=== PATIENT | male | born 1985 | race Caucasian/White ===

== ENCOUNTER 2017-03-25 18:26 | Observation (INO) | payer BC ==
[~2017-03-25] VITALS: Ht 182.9 cm; Wt 81.6 kg
[2017-03-25 19:03] LABS: HEMATOCRIT 46.2 % (38.0-50.0); MCH 30.5 PG (29.0-34.0); MCHC 35.1 G/DL (30.0-36.0); MCV 86.8 FL (86-99); MEAN PLAT.VOLUME 9.3 uM^3 (9.0-12.4); PLATELET COUNT 156 K/uL (156-360); RBC DIS.WIDTH-CV 12.2 % (11.8-14.6); RBC DIS.WIDTH-SD 38.8 % (39-53); RED BLOOD COUNT 5.32 M/uL (4.00-5.50); WHITE BLOOD COUNT 7.5 K/uL (4.1-10.2)
[2017-03-25 19:13] LABS: CHLORIDE 103 mEq/L (99-109); POTASSIUM 3.7 mEq/L (3.7-5.4); SODIUM 139 mEq/L (136-147)
[2017-03-25 19:15] LABS: GLUCOSE 115 mg/dL (70-99)
[2017-03-25 19:16] LABS: ANION GAP 10 MEQ/L (2-14)
[2017-03-25 19:20] LABS: UREA NITROGEN (BUN) 14 mg/dL (9-23)
[2017-03-25 19:22] LABS: GFR ESTIMATE (CALCULATED) > 59 mL/min/
[2017-03-25 19:23] LABS: TROP-I INTERPRETATION NEGATIVE; TROPONIN-I < 0.01 ng/mL (0.0-0.30)
[2017-03-25 21:47] LABS: BASE EXCESS 3.9 mEq/L (-3 to +3); BICARBONATE 27.7 mEq/L (22-26); CARBOXY HGB 1.7 % (0-5); METHEMOGLOBIN 1.4 % (0-1.5); PCO2 38 mm Hg (35-45); PO2 73 mm Hg (80-100); pH 7.47 (7.35-7.45)
[2017-03-25 21:55] LABS: CARBOXY HGB 1.9 % (0-5); METHEMOGLOBIN 1.2 % (0-1.5)
[2017-03-25 22:11] LABS: COMMENTS - BLOOD GASES A+C+; DEVICE NC; O2 FLOW 2 L/MIN; SITE LR
[2017-03-26 00:59] LABS: ADD MIUA? YES; BILIRUBIN NEGATIVE; BLOOD SMALL; COLOR YELLOW ((YELLOW)); GLUCOSE (STRIP) NEGATIVE; KETONES 5; LEUKOCYTES NEGATIVE; NITRITE NEGATIVE; PROTEIN (STRIP) 30
[2017-03-26 01:08] LABS: BACTERIA RARE /HPF; EPITHELIAL CELLS NONE SEEN /HPF; MUCUS TRACE /LPF; UCUL ADDED? NO; WHITE BLOOD CELLS 0-5 /HPF (0-5)
[2017-03-26 01:10] LABS: LIPASE 33 U/L (1.0-51.0)
[2017-03-26 01:30] VITALS: BP 118/57
[2017-03-26 01:43] LABS: TROP-I INTERPRETATION NEGATIVE; TROPONIN-I < 0.01 ng/mL (0.0-0.30)
[2017-03-26 01:49] LABS: SPECIFIC GRAVITY 1.083 (1.000-1.030)
[2017-03-26 07:00] LABS: TROP-I INTERPRETATION NEGATIVE; TROPONIN-I < 0.01 ng/mL (0.0-0.30)
[2017-03-26 07:25] VITALS: BP 99/55
[2017-03-26 09:46] LABS: LYME DISEASE SEROLOGY SCREEN NEGATIVE (NEGATIVE)
[2017-03-26 12:38] VITALS: BP 126/57
[2017-03-26] MEDS ORDERED: AZITHROMYCIN500 M1 PO (14:50)
[2017-03-26] MEDS ORDERED: NAPROXEN500 MG PO (14:50)
== END 2017-03-26 15:58 | disposition home or self-care (01) ==
LOC: EME 18:26 → EDOF 03-26 00:10 → ENRESERV 03-26 00:12 → 5WEST 03-26 01:20
PROVIDERS: Emergency Medicine; Hospitalist; Physician Assistant
DX: R09.1 Pleurisy (principal); R31.29 Other microscopic hematuria; R09.02 Hypoxemia; R06.02 Shortness of breath; M54.6 Pain in thoracic spine; Z86.19 Personal history of other infectious and parasitic diseases; Z82.49 Family history of ischemic heart disease and other diseases of the circulatory system; N28.9 Disorder of kidney and ureter, unspecified
CPT/HCPCS: 36600; 71020; 71275; 72129; 80048; 81003; 82803; 82810; 83690; 84484; 85027; 85651; 86618; 87040; 87502; 87651 90; 93005; 93306; 99281; 99285; G0378; J7030